=== PATIENT | male | born 1975 | race Caucasian/White ===

== ENCOUNTER → 2020-12-21 | Outpatient (CLI) | payer BC ==
--- NOTE | 2020-12-21 12:07 | REP ---
INDICATION: LT WRIST FX LOWER END OF ULNA. COMPARISON: None. TECHNIQUE: CT of the wrist without IV contrast. FINDINGS: There is a comminuted fracture of the distal radius and a fracture at the base of the ulnar styloid process stabilized by fiberglass cast. The fracture of the distal radius is intra-articular a. There is approximately 2 mm step-off of the distal radius articular cartilage. There is a tiny bony fragment measuring approximately 2 mm interposed within the for fracture along the articular cortex of the distal radius. There is diastasis of the fracture fragments of the distal radius measuring up to 3.7 mm. No other fractures are identified. There is no dislocation. IMPRESSION: Intra-articular comminuted fracture of the distal radius. Approximate 2 mm step-off along the articular cortex of the distal radius. Tiny 2 mm calculus interposed into the fracture along the articular cortex of the distal radius. Diastasis of the distal radius fracture measuring up to 3.7 mm Nondisplaced fracture at the base of the ulnar styloid. A small bone cysts is incidentally noted in the lunate ossicle. Fiberglass cast. . <Electronically signed by Kenan Breaux > 12/21/20 2240
== END ==
LOC: M RAD 11:07
PROVIDERS: ATTEND Orthopaedic Surgery
DX: S52.692D Other fracture of lower end of left ulna, subsequent encounter for closed fracture with routine healing (principal); S52.572D Other intraarticular fracture of lower end of left radius, subsequent encounter for closed fracture with routine healing; X58.XXXD Exposure to other specified factors, subsequent encounter; Y92.9 Unspecified place or not applicable; Y99.9 Unspecified external cause status; Y93.9 Activity, unspecified; M85.432 Solitary bone cyst, left ulna and radius

== ENCOUNTER 2022-01-27 21:49 | Emergency (ER) | payer BC ==
[~2022-01-27] VITALS: Ht 177.8 cm; Wt 90.9 kg
[2022-01-27 22:16] LABS: VENOUS BASE EXCESS 2.4 (-2.0-2.0); VENOUS O2 SATURATION 99.2 % (60.0-80.0); VENOUS PARTIAL PRESSURE CO2 23.7 mmHg (38.0-50.0); VENOUS PARTIAL PRESSURE O2 127.6 mmHg (30.0-50.0); VENOUS PH 7.585 UNITS (7.330-7.430); VENOUS STANDARD HCO3 26.6 MEQ/L; VENOUS TOTAL CO2 22.7 MEQ/L (24.0-28.0)
[2022-01-27 22:25] LABS: BASO % 0.3 % (0.0-1.0); HEMATOCRIT 45.1 % (42.0-52.0); HEMOGLOBIN 16.1 g/dl (13.5-17.5); LYMPH # 1.4 10^3/uL (1.5-5.0); LYMPH % 11.8 % (24.0-44.0); MEAN CORPUSCULAR HEMOGLOBIN 32.7 pg (27.0-33.0); MEAN CORPUSCULAR HGB CONC 35.7 g/dl (32.0-36.5); MEAN CORPUSCULAR VOLUME 91.5 fl (80.0-96.0); MONO # 0.7 10^3/uL (0.0-0.8); MONO % 6.1 % (2.0-8.0); NEUTROPHILS # 9.7 10^3/uL (1.5-8.5); NEUTROPHILS % 81.5 % (36.0-66.0); PLATELET COUNT, AUTOMATED 227 10^3/uL (150-450); RED BLOOD COUNT 4.93 10^6/uL (4.30-6.10); WHITE BLOOD COUNT 11.9 10^3/uL (4.0-10.0)
[2022-01-27 23:10] LABS: BLOOD UREA NITROGEN 11 MG/DL (7-18); CALCIUM LEVEL 9.7 MG/DL (8.5-10.1); CARBON DIOXIDE LEVEL 23 MEQ/L (21-32); CHLORIDE LEVEL 101 MEQ/L (98-107); CREATININE FOR GFR 1.05 MG/DL (0.70-1.30); GLOMERULAR FILTRATION RATE > 60.0 (>60); GLUCOSE, FASTING 123 MG/DL (70-100); POTASSIUM SERUM 3.6 MEQ/L (3.5-5.1); SODIUM LEVEL 134 MEQ/L (136-145)
[2022-01-27 23:17] LABS: CK-MB VALUE MASS 4.4 NG/ML (<3.6); MB/CK RELATIVE INDEX 0.49 (< OR =4)
[2022-01-28 01:35] LABS: CK-MB VALUE MASS 3.7 NG/ML (<3.6); MB/CK RELATIVE INDEX 0.29 (< OR =4)
[2022-01-28 01:35] LABS: AMPHETAMINES LEVEL URINE NEGATIVE (NEGATIVE); BARBITURATES URINE NEGATIVE (NEGATIVE); BENZODIAZEPINES URINE POSITIVE (NEGATIVE); CANNABINOIDS URINE POSITIVE (NEGATIVE); COCAINE METABOLITE URINE NEGATIVE (NEGATIVE); METHADONE URINE NEGATIVE (NEGATIVE); OPIATES URINE NEGATIVE (NEGATIVE); PHENCYCLIDINE URINE NEGATIVE (NEGATIVE)
[2022-01-28] MEDS ORDERED: MIDAZOLAM INJ 2MG/2ML VIAL (J2250 PER 1MG) IV ONE (05:55)
[2022-01-28] MEDS ORDERED: NS 2,730 ML in IV 1 EA IV ONE (05:55)
[2022-01-28] MEDS ORDERED: LORazepam 2 MG TAB PO PRN (06:00)
[2022-01-28] MEDS ORDERED: ISOVUE-370 76% 100ML VIAL As Ordered ONE (06:02)
[2022-01-28 07:26] LABS: RSV AMPLIFICATION NEGATIVE (NEGATIVE)
[2022-01-28 07:43] LABS: CK-MB VALUE MASS 2.6 NG/ML (<3.6); MB/CK RELATIVE INDEX 0.24 (< OR =4)
[2022-01-28] MEDS ORDERED: THIAMINE 100 MG TAB PO SCH (09:00)
[2022-01-28] MEDS ORDERED: MULTIVITAMINS/MINERALS THERAP 1 TAB PO SCH (09:00)
[2022-01-28] MEDS ORDERED: FOLIC ACID 1MG TAB PO SCH (09:00)
[2022-01-28 10:18] VITALS: BP 154/77
[2022-01-29] MEDS ORDERED: UNRESOLVED CLARIFICATION ENTRY XX SCH (00:01)
== END 2022-01-28 10:20 | disposition home or self-care (01) ==
LOC: M ED 21:49
DX: M62.82 Rhabdomyolysis (principal); F10.120 Alcohol abuse with intoxication, uncomplicated; R07.89 Other chest pain; F19.10 Other psychoactive substance abuse, uncomplicated; F12.10 Cannabis abuse, uncomplicated; F17.290 Nicotine dependence, other tobacco product, uncomplicated
CPT/HCPCS: 71045; 71275; 80048; 80307; 81002; 82077; 82550; 82553; 82803; 84484; 85025; 87631; 93005; 96361; 96374; 99284; J2250; Q9967

== ENCOUNTER 2024-05-13 16:23 | Emergency (ER) | payer BC ==
[2024-05-13] MEDS ORDERED: LORazepam 2 MG TAB PO PRN (16:50)
[2024-05-13 17:00] LABS: BASO % 0.5 % (0.0-1.0); EOS % 0.5 % (0.0-3.0); HEMATOCRIT 46.4 % (42.0-52.0); HEMOGLOBIN 16.3 g/dl (13.5-17.5); LYMPH # 2.4 10^3/uL (1.5-5.0); LYMPH % 32.6 % (24.0-44.0); MEAN CORPUSCULAR HEMOGLOBIN 31.5 pg (27.0-33.0); MEAN CORPUSCULAR HGB CONC 35.1 g/dl (32.0-36.5); MEAN CORPUSCULAR VOLUME 89.7 fl (80.0-96.0); MONO # 0.5 10^3/uL (0.0-0.8); MONO % 6.8 % (2.0-8.0); NEUTROPHILS # 4.3 10^3/uL (1.5-8.5); NEUTROPHILS % 59.5 % (36.0-66.0); PLATELET COUNT, AUTOMATED 247 10^3/uL (150-450); RED BLOOD COUNT 5.17 10^6/uL (4.30-6.10); WHITE BLOOD COUNT 7.3 10^3/uL (4.0-10.0)
[2024-05-13 17:30] LABS: AMPHETAMINES LEVEL URINE NEGATIVE (NEGATIVE); BARBITURATES URINE NEGATIVE (NEGATIVE); BENZODIAZEPINES URINE NEGATIVE (NEGATIVE); COCAINE METABOLITE URINE NEGATIVE (NEGATIVE); METHADONE URINE NEGATIVE (NEGATIVE); OPIATES URINE NEGATIVE (NEGATIVE); PHENCYCLIDINE URINE NEGATIVE (NEGATIVE)
[2024-05-13 17:30] LABS: ETHYL ALCOHOL (ETHANOL) 0.278 % (0.000-0.010)
[2024-05-13 17:32] LABS: SALICYLATE LEVEL 3.6 MG/DL (<30)
[2024-05-13 17:32] LABS: CANNABINOIDS URINE POSITIVE (NEGATIVE)
[2024-05-13 17:33] LABS: ALBUMIN 4.1 G/DL (3.2-5.2); ALKALINE PHOSPHATASE 108 U/L (40-129); ALT/SGPT 27 U/L (7.0-40); AST/SGOT 28 U/L (<34); BILIRUBIN,DIRECT 0.2 MG/DL (<0.4); BILIRUBIN,TOTAL 0.7 MG/DL (0.3-1.2); BLOOD UREA NITROGEN 8 MG/DL (9-23); CALCIUM LEVEL 9.6 MG/DL (8.5-10.1); CARBON DIOXIDE LEVEL 29 MMOL/L (20-31); CHLORIDE LEVEL 101 MMOL/L (98-107); CREATININE FOR GFR 0.77 MG/DL (0.70-1.30); GLOMERULAR FILTRATION RATE > 60.0 (>60); GLUCOSE, FASTING 109 MG/DL (60-100); POTASSIUM SERUM 4.2 MMOL/L (3.5-5.1); SODIUM LEVEL 140 MMOL/L (136-145); TOTAL PROTEIN 7.7 G/DL (5.7-8.2)
[2024-05-13 17:40] LABS: THYROID STIMULATING HORMONE 1.097 uIU/ML (0.55-4.78)
[2024-05-13 17:42] LABS: CPK CREATINE PHOSPHOKINASE 97 U/L (46-171)
[2024-05-13] MEDS: LORazepam 1 MG TAB PO STA (18:16)
[2024-05-13 18:50] VITALS: BP 136/86; TEMP 97.3; O2SAT 97
[2024-05-13] MEDS ORDERED: THIAMINE 100 MG TAB PO SCH (21:00)
[2024-05-14] MEDS ORDERED: FOLIC ACID 1MG TAB PO SCH (09:00)
[2024-05-14] MEDS ORDERED: MULTIVITAMINS/MINERALS THERAP 1 TAB PO SCH (09:00)
== END 2024-05-13 18:55 | disposition home or self-care (01) ==
LOC: M ED 16:23
DX: F10.139 Alcohol abuse with withdrawal, unspecified (principal); F10.129 Alcohol abuse with intoxication, unspecified